=== PATIENT | female | born 1975 | race Caucasian/White ===

== ENCOUNTER 2018-02-21 02:27 | Emergency (ER) | payer OTHER, MEDICAID, SELFPAY ==
[2018-02-21 02:50] VITALS: BP 148/86; PULSE 96; RESP 16; TEMP 36.1; O2SAT 97; BMI 35.6
--- NOTE | 2018-02-21 03:05 | DI.US.S_ITS ---
PROCEDURE: US PERIPH VENOUS LOW EXTREM RT INDICATIONS: pain, swelling, redness, hx clot TECHNIQUE: Real-time imaging, as well as color and pulse Doppler interrogation, were performed of the lower extremity deep veins from the inguinal ligament to the popliteal fossa. COMPARISON: None. FINDINGS: Preliminary report by shift boss radiology The deep veins are normally compressible, and free of intraluminal thrombus. Color and pulse Doppler demonstrate normal phasic intraluminal flow. There is normal augmentation response to distal compression maneuver. IMPRESSION: Negative for DVT. Findings are concordant with the preliminary report. Dictated by: Pako Suarez M.D. on 02/21/2018 at 8:18 Approved by: Pako Suarez M.D. on 02/21/2018 at 8:19
[2018-02-21 03:27] LABS: Add Manual Diff / Slide Review NO; Basophils Percent Auto 0.3 % (0-2); Eosinophils Percent Auto 4.2 % (2-4); Hematocrit 38.7 % (36-46); Hemoglobin 13.4 g/dL (12.0-16.0); Lymphocytes Percent Auto 42.2 % (25-40); Mean Corpuscular HGB Conc 34.7 % (30-36); Mean Corpuscular Hemoglobin 31.9 PG (26-34); Mean Corpuscular Volume 92.1 fL (80-100); Monocytes Percent Auto 6.5 % (3-14); Neutrophils Absolute Auto 3800 /uL (3000-5900); Neutrophils Percent Auto 46.8 % (50-75); Platelet Count 316 X10^3/uL (150-400); Red Blood Cell Count 4.21 X10^6/uL (4.0-5.2); White Blood Cell Count 8.1 X10^3/uL (4.5-11.0)
--- NOTE | 2018-02-21 03:40 | ED_ITS ---
HPI - Extremity Injury (Lower) General Chief Complaint: Extremity Injury, Lower Stated Complaint: pain in right leg, both legs swollen and bruising Time Seen by Provider: 02/21/18 02:35 Source: patient and family Mode of arrival: ambulatory Limitations: no limitations History of Present Illness HPI Narrative: 42-year-old female presents with right lower extremity pain and swelling in the absence of injury. She started having trouble on and states that it persist today. Her pain is worse with ambulation and improves with rest. She denies any chest pain or shortness of breath. She does have a history of DVT with prior . She denies any chance of . She has had no fever or chills. She did initially present to an outside hospital but left prior to a workup. MD complaint: other ( Right leg pain) Onset (ago): day(s) Other symptoms: none Related Data Allergies Allergy/AdvReac Type Severity Reaction Status Date / Time kendrick Allergy Verified 02/21/18 02:50 nut - unspecified Allergy Verified 02/21/18 02:50 Review of Systems Review of Systems All systems reviewed & are unremarkable except as noted in HPI and below Constitutional Denies chills, Denies fever(s), Denies lethargy and Denies weakness Eyes Denies change in vision, Denies eye discharge, Denies irritation and Denies loss of vision ENT Ears, Nose, Mouth, and Throat: Denies change in voice, Denies neck pain and Denies sore throat Cardiovascular Denies chest pain, Denies irregular heart rhythm, Denies lightheadedness, Denies palpitations, Denies dyspnea, Denies dyspnea on exertion and Denies orthopnea Respiratory Denies cough, Denies dyspnea, Denies dyspnea on exertion and Denies wheezing Gastrointestinal Gastrointestinal: Denies abdominal pain, Denies change in bowel habits, Denies diarrhea, Denies nausea and Denies vomiting Genitourinary Denies hematuria, Denies flank pain, Denies urinary incontinence and Denies urinary urgency Musculoskeletal Denies neck pain Integumentary/Breasts Denies pruritus, Reports erythema, Denies rash and Denies wounds Neurologic Denies confusion, Denies loss of vision and Denies weakness Psychiatric Denies anxiety, Denies confusion, Denies depression, Denies homicidal ideation and Denies suicidal ideation Endocrine Denies palpitations Hematologic/Lymphatic Denies easy bruising Allergic/Immunologic Denies wheezing PFSH Medical History DVT (deep vein thrombosis) in (Acute) Exam Narrative Exam Narrative: Pleasant 42F in no obvious distress Initial Vital Signs Initial Vital Signs: Vital Signs Temperature 96.9 F L 02/21/18 02:50 Pulse Rate 96 H 02/21/18 02:50 Respiratory Rate 16 02/21/18 02:50 Blood Pressure 148/86 H 02/21/18 02:50 Pulse Oximetry 97 02/21/18 02:50 Const General: cooperative, well developed and anxious Nutritional Appearance: well nourished Orientation: alert, awake, oriented x3 and not confused [facility] Head: normocephalic and atraumatic Ears: external ears normal and TM's normal bilaterally Nose: external nose normal and No nasal discharge Face and sinus: sinuses nontender, face symmetric, no sinus tenderness and No dry mucous membranes Mouth: oral mucosae normal and moist mucous membranes Teeth and gingiva: dentition normal Throat: tonsils normal and uvula midline Resp Effort & Inspection: normal respiratory effort, able to speak in complete sentences, no respiratory distress and no use of accessory muscles Auscultation: clear to auscultation bilaterally, no rales, no rhonchi and no wheezes Cardio Rate: regular rate Rhythm: regular rhythm Heart Sounds: no click, no gallops, no murmurs and no rubs Pulses: normal peripheral pulses GI Inspection: non-distended Palpation: soft, no hepatosplenomegaly, No guarding, No pulsatile mass and No tender Auscultation: normal bowel sounds Back/Spine/Pelvis Back: No CVA tenderness Cervical Spine: cervical ROM normal and No pain with cervical ROM Thoracic/Lumbar Spine: thoracic and lumbar spine normal to inspection Skin General: erythema (small quarter sized area of erythema on lateral RLE, painful to palp. No fluctuance or induration. ) Neuro General: alert, oriented x3, gait normal and no focal motor deficits Speech: speech normal Extrem Right lower extremity: lower leg (no pitting edema, lateral lower extremity it painful to palp, no warmth, fluctuance or induration. ) Course Orders Ordered: ED Orders 02/21/18 03:05 periph venous low extrem rt Stat 02/21/18 03:14 Complete Blood Count AUTO DIFF Stat Erythrocyte Sedimentation Rate Stat Vital Signs - 8 hr 02/21/18 02:50 Temperature 96.9 F L Pulse Rate 96 H Respiratory Rate 16 Blood Pressure 148/86 H Pulse Oximetry 97 MDM - Extremity Injury (Lower) Differential Diagnosis Likely other (DVT, superficial thrombophlebitis) Medical Records Attestation: I reviewed the patient's medical records. Lab Data Attestation: I reviewed the patient's lab results. Result diagrams: 02/21/18 03:14 Lab Results 02/21/18 Range/Units 03:14 WBC 8.1 (4.5-11.0) X10^3/uL RBC 4.21 (4.0-5.2) X10^6/uL Hgb 13.4 (12.0-16.0) g/dL Hct 38.7 (36-46) % MCV 92.1 (80-100) fL MCH 31.9 (26-34) PG MCHC 34.7 (30-36) % RDW 14.0 (11.6-14.8) % Plt Count 316 (150-400) X10^3/uL Neut % (Auto) 46.8 L (50-75) % Lymph % (Auto) 42.2 H (25-40) % Harnett % (Auto) 6.5 (3-14) % Eos % (Auto) 4.2 H (2-4) % Baso % (Auto) 0.3 (0-2) % Neut # (Auto) 3800 (2826-0726) /uL MDM Narrative Medical decision making narrative: pain, swelling, redness in absence of injury in a patient with a history of clots. Minimal erythema and pain on exam. Normal labs. Normal US (no DVT). No back pain or suggestion of radiation from back. Discharge Plan Departure Patient Disposition: Home, Self-Care Clinical Impression: Acute leg pain Instructions: DI for Leg Pain Activity Restrictions/Additional Instructions: *You have been diagnosed with [ acute leg pain (no DVT) ] *What to do: *Follow up with your primary care provider in the next few days, call later this morning for an appointment and let them know you were seen in the ER and we want you to follow up. *Return to ER if you should have any new, worsening or concerning symptoms
[2018-02-21 04:00] LABS: Erythrocyte Sedimentation Rate 22 MM/HR (0-20)
== END 2018-02-21 04:39 | disposition home or self-care (01) ==
PROVIDERS: Emergency Provider Emergency Medicine
DX: M79.604 Pain in right leg (principal)
CPT/HCPCS: 36415; 85025; 85651; 93971; 99282; 99283

== ENCOUNTER 2022-09-23 13:09 | Emergency (ER) | payer OTHER, MEDICAID, SELFPAY ==
[2022-09-23 13:25] VITALS: BP 161/86; PULSE 91; RESP 16; TEMP 36.4; O2SAT 99; BMI 33.6
--- NOTE | 2022-09-23 13:36 | DI.CT.S_ITS ---
PROCEDURE: CT SOFT TISSUE NECK W CON INDICATIONS: eval abscess TECHNIQUE: After the administration of intravenous contrast, 3.0 mm axial sections acquired from the sella to the aortic arch. 3 mm thick coronal and sagittal reformats were generated. For radiation dose reduction, the following was used: automated exposure control. COMPARISON: None. FINDINGS: Skull Base: The visualized intracranial contents, skull, and orbits are unremarkable. Visualized paranasal sinuses are clear. Pharynx and Larynx: The nasopharyngeal airway is patent and midline. Parapharyngeal soft tissues including palatine tonsils and base of the tongue are normal. Retropharyngeal space unremarkable. Normal appearance of the false and true vocal cords. Muscles and Fascial Planes: Fascial planes are well maintained. No abscess or mass lesion. Lymph Nodes: No evidence of adenopathy. Scattered normal appearing lymph nodes Vasculature: Unremarkable. Submandibular and Parotid Glands: Normal in size and attenuation. Thyroid: Unremarkable. No enlarged or calcified nodules. Bones: No acute fracture. No osteolytic or blastic lesion is evident. Normal bone mineralization. Lung Apices: The visualized lung apices are clear. IMPRESSION: 1. Unremarkable CT of the neck with contrast. No evidence of abscess Approved by: oRd Zuleta M.D. on 09/23/2022 at 14:27
[2022-09-23 16:24] VITALS: BP 132/78; PULSE 70; RESP 17; O2SAT 99
--- NOTE | 2022-09-24 11:17 | ED.SKABFB ---
HPI - Skin/Abscess/Foreign Bdy General Chief complaint: Skin/Abscess/Foreign Body Stated complaint: sent by [facility] for testing Time Seen by Provider: 09/23/22 13:36 Source: patient Mode of arrival: Ambulatory Limitations: no limitations History of Present Illness HPI narrative: 46-year-old female presenting with lower lip skin lesion from walk-in clinic. Patient noted symptoms worsening today with small skin lesion over the lower lip, patient has been using a Band-Aid to cover small amount of discharge/drainage, noted associated faint redness and swelling to the left side of the face, evaluated at walk-in clinic earlier in the day, sent for further evaluation. Patient denies any difficulty swallowing, no tongue swelling or tongue elevation, no difficulty managing secretions, no change in voice, no fevers. Patient does have a history of lupus. Related Data Previous Rx's Medication Instructions Recorded clindamycin HCl 300 mg capsule 300 mg PO TID #21 caps 09/23/22 Allergies Allergy/AdvReac Type Severity Reaction Status Date / Time kendrick Allergy Verified 02/21/18 02:50 nut - unspecified Allergy Verified 02/21/18 02:50 Patient History Medical History DVT (deep vein thrombosis) in Social History Smoking Status: Current every day smoker Smoking Status: Current every day smoker tobacco type: cigarettes Substance Use Type: does not use Exam Narrative Exam Narrative: Vitals reviewed. Nursing note reviewed Constitutional: interactive HENT: Moist mucous membranes, no trismus, no meningismus, no intraoral lesions appreciated, no tongue swelling or tongue elevation, intact dentition, small vesicular type lesion over the lower lip without significant surrounding erythema, no significant swelling appreciated, no induration underneath the angle of the jaw, no limitation in neck movement. EYES: No scleral icterus NECK: no masses CV: Well perfused peripherally, no cyanosis present PULM: Unlabored respirations, symmetric chest rise ABD: Non-distended MS: No gross deformities, no asymmetric edema noted SKIN: Warm and dry. PSYCH: Appropriate affect NEURO: Follows simple commands, moves extremities, interactive with exam Initial Vital Signs Initial Vital Signs: Vital Signs Temperature 97.6 F 09/23/22 13:25 Pulse Rate 91 H 09/23/22 13:25 Respiratory Rate 16 09/23/22 13:25 Blood Pressure 161/86 H 09/23/22 13:25 Pulse Oximetry 99 09/23/22 13:25 Oxygen Delivery Method 09/23/22 13:25 MDM - Skin/Abscess/Foreign Bdy MDM Narrative Medical decision making narrative: 46-year-old female presenting with skin lesion with concern for possible cellulitis versus abscess. On presentation, vital signs notable for no significant abnormalities. Physical exam notable for well-appearing 46-year-old female who is in no acute distress, alert, interactive, reassuring cardiopulmonary exam, HEENT exam notable for no trismus or meningismus, no tongue elevation or limitation and neck range of motion, no significant induration or edema to the face or neck. Initial concern for early cellulitis, nonspecific viral exanthem, autoimmune lesion, herpetic lesion, deep space infection of the neck, Carlos's angina, intraoral abscess, occult sepsis. Patient without evidence of sepsis on bedside exam or by vital sign changes and further evaluation deferred. No obvious abscess on bedside exam. Patient without evidence of changes the posterior oropharynx to suggest deep space infection of the neck. Given subjective complaint of swelling to the lower jaw, CT soft tissue neck ordered to further evaluate for occult intraoral abscess versus early cellulitis. CT soft tissue neck without evidence of acute pathology as above. Discussed findings with patient at bedside. Patient does not have obvious evidence of cellulitis on bedside exam. Discussed concern for possible really herpetic lesion versus early cellulitis. Patient was prescribed a wait and see antibiotic prescription, instructed to monitor symptoms for the last 12- 24 hours, starting antibiotics if symptoms did not improve significantly over this time period. Patient was given strict return precautions if she developed any obvious evidence of infection including fever, worsening swelling or redness, difficulty managing secretions, shortness of breath, or worsening pain. Discharge Plan Departure Patient Disposition: Home Clinical Impression: Localized soft tissue swelling Instructions: DI for Cellulitis -- Adult Activity Restrictions/Additional Instructions: Please follow up in outpatient setting with your primary care provider. As discussed, please monitor your symptoms and take the antibiotics as prescribed if symptoms worsen. Please return to the emergency department if develops fever, inability to tolerate oral intake, tongue swelling, swelling underneath the tongue, or new symptoms develop. Prescriptions: New clindamycin HCl 300 mg capsule 300 mg PO TID Qty: 21 0RF Referrals: Reyna Johnson PA-C [Primary Care Provider] - Stand Alone Forms: Patient Portal/API
== END 2022-09-23 16:26 | disposition home or self-care (01) ==
PROVIDERS: Emergency Provider Emergency Medicine; PCP Physician Assistant Medical
DX: R22.9 Localized swelling, mass and lump, unspecified (principal)
CPT/HCPCS: 70491; 99283; Q9967